=== PATIENT | male | born 1995 | race Caucasian/White ===

== ENCOUNTER 2019-10-23 07:37 | Outpatient (CLI) | payer OTHER ==
--- NOTE | 2019-10-23 08:31 | CT ---
CT ABDOMEN AND PELVIS WITH AND WITHOUT IV CONTRAST 10/23/2019 CLINICAL INFORMATION: Epigastric pain. History of ulcerative colitis. Patient states painful breathing. COMPARISON: None. Technique: Multiple contiguous axial CT images are obtained through the abdomen and pelvis with IV contrast. Cor onal reformatted images are provided. FINDINGS: Lower Chest: Lung bases are clear. Vessels: The abdominal aorta is normal in caliber without evidence of an aortic dissection. Abdomen: Portal vein:Patent Gallbladder: Within normal limits for CT imaging. Liver: within normal limits. Spleen: within normal limits. Pancreas: within normal limits. Adrenals: within normal limits. Kidneys: within normal limits. Bowel: Loops small bowel are normal in caliber. Small amount of retained fecal material is seen throu ghout the colon. Appendix: The appendix is visualized and normal in caliber. Peritoneum: No ascites or free air; no fluid collection. Mesentery and Retroperitoneum: No enlarged mesenteric or retroperitoneal lymph nodes. Abdominal Wall: within normal limits. Pelvis: Reproductive Organs: No pelvic masses. Pelvis within normal limits. Bladder: within normal limits. Bones: within normal limits. IMPRESSION: No acute findings in the abdomen or pelvis.
== END 2019-10-23 07:38 | disposition home or self-care (01) ==
LOC: BICCT 07:37
PROVIDERS: ATTEND Internal Medicine
DX: K51.90 Ulcerative colitis, unspecified, without complications (principal); R10.13 Epigastric pain; R07.1 Chest pain on breathing
CPT/HCPCS: 74177; 74178